=== PATIENT | female | born 1955 | race African-American/Black ===

== ENCOUNTER 2021-03-08 18:15 | Inpatient (IN) | payer MEDICARE ==
[~2021-03-08] VITALS: Ht 157.5 cm; Wt 64.4 kg
[2021-03-08 19:29] LABS: CALCIUM, SERUM 8.8 mg/dL (8.5-10.1); CHLORIDE 97 mmol/L (98-107); CREATININE 0.8 mg/dL (0.6-1.3); GLUCOSE 91 mg/dL (74-106); SODIUM SERUM 140 mmol/L (136-145); UREA NITROGEN, BLOOD 19 mg/dL (7-18)
[2021-03-08 19:35] LABS: CARBON DIOXIDE 40 mmol/L (21-32)
[2021-03-08 19:43] LABS: BILIRUBIN,DIRECT 0.1 mg/dL (0.0-0.2); BILIRUBIN,TOTAL 0.3 mg/dL (0.2-1.0)
[2021-03-08 19:44] LABS: ALANINE AMINOTRANSFERASE 30 U/L (12-78); ALBUMIN 3.3 g/dL (3.4-5.0); ALKALINE PHOSPHATASE 109 U/L (46-116); ASPARTATE AMINOTRANSFERASE 19 U/L (15-37); TOTAL PROTEIN, SERUM 6.8 g/dL (6.4-8.2)
[2021-03-08 19:45] LABS: LIPASE 171 U/L (73-393)
[2021-03-08] MEDS ORDERED: IV NS 0.9% 250 ML IV ONE (19:46)
[2021-03-08] MEDS ORDERED: IOHEXOL-300 100 ML VIAL IV ONE (19:46)
[2021-03-08 19:50] LABS: BASOPHILS # (AUTO) 0.1 K/uL (0.0-0.2); BASOPHILS % (AUTO) 0.7 % (0.0-2.0); EOSINOPHILS % (AUTO) 2.9 % (0.0-6.0); HEMATOCRIT 39 % (33-45); HEMOGLOBIN 13.4 g/dL (11.5-14.8); LYMPHOCYTES % (AUTO) 24.6 % (20.0-44.0); MEAN CORPUSCULAR HGB CONC 34 g/dl (31.0-36.0); MEAN CORPUSCULAR VOLUME 98 fL (82-100); MONOCYTES # (AUTO) 0.8 K/uL (0.1-1.30); MONOCYTES % (AUTO) 9.5 % (2.0-12.0); NEUTROPHILS % (AUTO) 62.3 % (43.0-81.0); PLATELET COUNT (AUTO) 258 K/uL (150-450); RED BLOOD CELL COUNT(AUTO) 3.99 MIL/uL (4.0-5.2)
[2021-03-08] MEDS ORDERED: POTASSIUM CHLORIDE 20 MEQ TAB.PRT.SR PO ONE ×2 (20:00→20:08)
[2021-03-08] MEDS ORDERED: POTASSIUM CL. PREMIX PERIPHER. 200 ML ONE (20:08)
[2021-03-08] MEDS: POTASSIUM CL. PREMIX PERIPHER. 50 ML IV SCH ×4 (20:37→23:37)
[2021-03-08] MEDS ORDERED: ACETAMINOPHEN 325 MG TABLET PO PRN (21:00)
[2021-03-08] MEDS ORDERED: MAGNESIUM HYDROXIDE 30 ML UDC PO PRN (21:00)
[2021-03-08] MEDS ORDERED: MORPHINE SULFATE INJ 2 MG/ML DISP.SYRIN IV PRN (21:00)
[2021-03-08] MEDS ORDERED: ONDANSETRON HCL/PF 4 MG/2 ML VIAL IVP PRN (21:00)
[2021-03-08] MEDS ORDERED: ZOLPIDEM TARTRATE 5 MG TABLET PO PRN (21:00)
[2021-03-08] MEDS ORDERED: IV 1/2NS 1000 ML 1,000 ML IV PRN (21:00)
[2021-03-08] MEDS ORDERED: MAG HYDROX/AL HYDROX/SIMETH 30 ML UDC PO PRN (21:00)
[2021-03-08] MEDS ORDERED: Z GUARD REMEDY 2 OZ OINT TP PRN (21:00)
[2021-03-08] MEDS ORDERED: HYDROCODONE/APAP 5/325MG TABLET PO PRN (21:00)
[2021-03-08 22:51] LABS: BILIRUBIN,URINE NEGATIVE (NEGATIVE); COLOR,URINE YELLOW (YELLOW); LEUKOCYTE ESTERASE ,URINE LARGE (NEGATIVE); NITRITE, URINE NEGATIVE (NEGATIVE); PH,URINE 7.5 (5.0-8.0); PROTEIN,URINE NEGATIVE (NEGATIVE); UGLUCOSE NEGATIVE (NEGATIVE); UROBILINOGEN,URINE 0.2 EU/dL (0.2)
[2021-03-08 23:07] LABS: BACTERIA,URINE Few /HPF (None Seen); SQUAMOUS EPITHELIAL CELL,UR Few /HPF (None Seen); WBC,URINE 21-50 /HPF (0-3)
[2021-03-09] MEDS ORDERED: CEFTRIAXONE 1GM BAG (ER ONLY) 50 ML IV ONE (00:22)
[2021-03-09] MEDS: CEFTRIAXONE 1 G in IV D5W 50 ML IV SCH ×2 (00:27→23:39)
[2021-03-09] MEDS ORDERED: DEXTROSE 50%-WATER 50 ML DISP.SYRIN IV PRN (01:00)
[2021-03-09 04:00] VITALS: BP 160/76
[2021-03-09] MEDS ORDERED: BISA10SU11 RC (07:21)
[2021-03-09] MEDS ORDERED: MAGN400T26 PO (07:21)
[2021-03-09] MEDS ORDERED: SENN-261 PO (07:21)
[2021-03-09] MEDS ORDERED: METO25TA3 PO (07:21)
[2021-03-09] MEDS ORDERED: INSU100V7 SQ (07:21)
[2021-03-09] MEDS ORDERED: DOCU-141 PO (07:21)
[2021-03-09] MEDS ORDERED: ACET-2605 PO (07:21)
[2021-03-09] MEDS ORDERED: FLUT16SP (07:21)
[2021-03-09] MEDS ORDERED: ONDA4TAB5 PO (07:21)
[2021-03-09] MEDS ORDERED: CYAN-51 PO (07:21)
[2021-03-09] MEDS ORDERED: FLUD0.1T PO ×2 (07:21)
[2021-03-09] MEDS ORDERED: CHOL100062 PO (07:21)
[2021-03-09] MEDS ORDERED: ATOR40TA PO (07:21)
[2021-03-09] MEDS ORDERED: ASPIRIN/DIPYRIDAMOLE PO (07:21)
[2021-03-09] MEDS ORDERED: MILN50TA PO (07:21)
[2021-03-09] MEDS ORDERED: POLY17PO4 PO (07:21)
[2021-03-09] MEDS ORDERED: FEXO180T94 PO (07:21)
[2021-03-09] MEDS ORDERED: ESCI10TA PO (07:21)
[2021-03-09] MEDS ORDERED: CRAN425C6 PO (07:21)
[2021-03-09] MEDS ORDERED: MYRBETRIQ ER PO (07:21)
[2021-03-09] MEDS ORDERED: PANT40TA2 PO (07:21)
[2021-03-09] MEDS ORDERED: LACT1CAP71 PO (07:21)
[2021-03-09] MEDS ORDERED: INSU100V27 SQ ×2 (07:21)
[2021-03-09 07:41] LABS: CALCIUM, SERUM 8.6 mg/dL (8.5-10.1); CREATININE 0.7 mg/dL (0.6-1.3); PHOSPHORUS 3.7 mg/dL (2.5-4.9)
[2021-03-09] MEDS: PANTOPRAZOLE 40 MG TABLET.DR PO SCH (07:43)
[2021-03-09 07:45] LABS: BASOPHILS # (AUTO) 0.1 K/uL (0.0-0.2); BASOPHILS % (AUTO) 0.8 % (0.0-2.0); EOSINOPHILS % (AUTO) 1.6 % (0.0-6.0); HEMATOCRIT 38 % (33-45); LYMPHOCYTES # (AUTO) 1.4 K/uL (0.8-4.8); LYMPHOCYTES % (AUTO) 19.3 % (20.0-44.0); MEAN CORPUSCULAR HGB CONC 34 g/dl (31.0-36.0); MEAN CORPUSCULAR VOLUME 99 fL (82-100); MONOCYTES # (AUTO) 0.6 K/uL (0.1-1.30); MONOCYTES % (AUTO) 8.5 % (2.0-12.0); NEUTROPHILS % (AUTO) 69.8 % (43.0-81.0); PLATELET COUNT (AUTO) 244 K/uL (150-450); RED BLOOD CELL COUNT(AUTO) 3.84 MIL/uL (4.0-5.2); WHITE BLOOD COUNT (AUTO) 7.2 K/uL (4.3-11.0)
[2021-03-09 07:46] LABS: POTASSIUM 2.6 mmol/L (3.5-5.1); THYROID STIMULATING HORMONE 1.798 uIU/mL (0.358-3.74)
[2021-03-09 08:00] VITALS: BP 132/76
[2021-03-09] MEDS: BLOOD SUGAR DIAGNOSTIC 1 EACH STRIP IN SCH ×4 (08:05→21:24)
[2021-03-09] MEDS: INSULIN REGULAR, HUMAN 100 UNIT/ML 3 ML VIAL SQ PRN ×4 (08:24→21:24)
[2021-03-09] MEDS: POTASSIUM CL. PREMIX PERIPHER. 50 ML IV SCH ×4 (09:24→12:47)
[2021-03-09 12:00] VITALS: BP 135/94
[2021-03-09 16:00] VITALS: BP 160/87
[2021-03-09] MEDS ORDERED: POTASSIUM CL. PREMIX PERIPHER. 50 ML IV SCH (19:00)
[2021-03-09 20:00] VITALS: BP 175/94
[2021-03-09] MEDS ORDERED: POTASSIUM CHLORIDE 20 MEQ TAB.PRT.SR PO ONE (20:00)
[2021-03-09] MEDS: hydrALAZINE HCL IV 20 MG VIAL IV PRN (20:40)
[2021-03-10] MEDS: IV LR 1000 ML 1,000 ML IV SCH ×2 (01:28→11:28)
[2021-03-10 04:00] VITALS: BP 188/97
[2021-03-10] MEDS: hydrALAZINE HCL IV 20 MG VIAL IV PRN (04:44)
[2021-03-10 06:54] LABS: BASOPHILS # (AUTO) 0.1 K/uL (0.0-0.2); BASOPHILS % (AUTO) 0.8 % (0.0-2.0); EOSINOPHILS % (AUTO) 2.2 % (0.0-6.0); HEMATOCRIT 41 % (33-45); LYMPHOCYTES # (AUTO) 1.4 K/uL (0.8-4.8); LYMPHOCYTES % (AUTO) 16.7 % (20.0-44.0); MEAN CORPUSCULAR HGB CONC 34 g/dl (31.0-36.0); MEAN CORPUSCULAR VOLUME 99 fL (82-100); MONOCYTES # (AUTO) 0.7 K/uL (0.1-1.30); MONOCYTES % (AUTO) 8.3 % (2.0-12.0); PLATELET COUNT (AUTO) 278 K/uL (150-450); RED BLOOD CELL COUNT(AUTO) 4.18 MIL/uL (4.0-5.2); WHITE BLOOD COUNT (AUTO) 8.3 K/uL (4.3-11.0)
[2021-03-10 07:17] LABS: CALCIUM, SERUM 8.7 mg/dL (8.5-10.1); CREATININE 1.1 mg/dL (0.6-1.3); MAGNESIUM 2.1 mg/dL (1.8-2.4); PHOSPHORUS 3.2 mg/dL (2.5-4.9)
[2021-03-10] MEDS: BLOOD SUGAR DIAGNOSTIC 1 EACH STRIP IN SCH ×2 (07:58→12:17)
[2021-03-10 08:00] VITALS: BP 115/55
[2021-03-10] MEDS: PANTOPRAZOLE 40 MG TABLET.DR PO SCH (08:11)
[2021-03-10] MEDS: INSULIN REGULAR, HUMAN 100 UNIT/ML 3 ML VIAL SQ PRN ×2 (08:14→12:31)
[2021-03-10] MEDS: POTASSIUM CL. PREMIX PERIPHER. 50 ML IV SCH ×4 (09:55→13:24)
[2021-03-10 12:00] VITALS: BP 130/65
[2021-03-10] MEDS ORDERED: CEPH500C2 PO (12:29)
[2021-03-10 16:00] VITALS: BP 143/61
== END 2021-03-10 17:04 | DRG 641 ==
LOC: ER 18:24 → TELE1 03-09 00:48
PROVIDERS: ATTEND Registered Nurse
DX: E87.6 Hypokalemia (principal); N39.0 Urinary tract infection, site not specified; J98.11 Atelectasis; E87.3 Alkalosis; E11.9 Type 2 diabetes mellitus without complications; D25.9 Leiomyoma of uterus, unspecified; E86.0 Dehydration; I10 Essential (primary) hypertension; F32.A Depression, unspecified; I70.8 Atherosclerosis of other arteries; K57.30 Diverticulosis of large intestine without perforation or abscess without bleeding; N32.81 Overactive bladder; N28.1 Cyst of kidney, acquired; R13.10 Dysphagia, unspecified; Z20.822 Contact with and (suspected) exposure to COVID-19; M79.7 Fibromyalgia
CPT/HCPCS: 36415; 71045-TC; 76705-TC; 80048-TC; 80076-TC; 81001; 82962-TC; 83690-TC; 83735-TC; 84100-TC; 84132-TC; 84443-TC; 84484-TC; 85025-TC; 87081-TC; 87086-TC; 92526; 92611-TC; G0378; J0360; J0696; J1815; J3480; J7030; J7050; J7060; J7120; Q9967; U0003